=== PATIENT | male | born 1995 | race Caucasian/White ===

== ENCOUNTER 2018-04-10 09:56 | Emergency (ER) | payer SELFPAY ==
[2018-04-10] MEDS ORDERED: DIPH/PERTUSS(ACELL)/TETANUS VAC/PF 0.5 ML SYR (>=10YO) IM ONE (10:14)
--- NOTE | 2018-04-10 10:16 | ER Document Report ---
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 Brief exam of the wound shows no deep structures involved. Patient does not know if his tetanus status is up-to-date. I have greeted and performed a rapid initial assessment of this patient. A comprehensive ED assessment and evaluation of the patient, analysis of test results and completion of the medical decision making process will be conducted by additional ED providers. TRAVEL OUTSIDE OF THE [place] IN LAST 30 DAYS: No - Related Data Allergies/Adverse Reactions: Penicillins Allergy (Verified 04/10/18 09:57) Past Medical History - Social History Chew tobacco use (# tins/day): No Frequency of alcohol use: None Drug Abuse: None Renal/ Medical History: Denies: Hx Peritoneal Dialysis Physical Exam - Vital signs Vitals: Temp Pulse Resp BP Pulse Ox 97.6 F 99 20 133/78 H 97 04/10/18 10:01 04/10/18 10:01 04/10/18 10:01 04/10/18 10:01 04/10/18 10:01 Course - Vital Signs Vital signs: Temp Pulse Resp BP Pulse Ox 97.6 F 99 20 133/78 H 97 04/10/18 10:01 04/10/18 10:01 04/10/18 10:01 04/10/18 10:01 04/10/18 10:01
--- NOTE | 2018-04-10 10:35 | ER Document Report ---
ED General - General Chief Complaint: Laceration Stated Complaint: WRIST INJURY Time Seen by Provider: 04/10/18 10:10 Mode of Arrival: Ambulatory Information source: Patient Notes: 22-year-old male with no reported past medical history presents with a laceration to his left wrist. 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 Unclear whether the patient's tetanus is up-to-date so this was ordered. Patient denies any pain, numbness. He is declining sutures and requesting Dermabond. I did advise him that the area where the laceration is is over the wrist joint and would more likely healed with sutures due to the movement of the wrist. Patient declining. TRAVEL OUTSIDE OF THE [place] IN LAST 30 DAYS: No - HPI Onset: Just prior to arrival Onset/Duration: Sudden Quality of pain: Achy Severity: Mild Associated symptoms: denies: Chills, Fever, Nausea, Vomiting, Shortness of breath Exacerbated by: Movement Relieved by: Remaining still Similar symptoms previously: No Recently seen / treated by doctor: No - Related Data Allergies/Adverse Reactions: Penicillins Allergy (Verified 04/10/18 09:57) Past Medical History - General Information source: Patient, [facility] Records - Social History Smoking Status: Current Every Day Smoker Cigarette use (# per day): Yes - 10 Chew tobacco use (# tins/day): No Smoking Education Provided: Yes - Smoking cessation counseling was provided for 4 minutes at the bedside Frequency of alcohol use: None Drug Abuse: None Lives with: Alone Family History: Reviewed & Not Pertinent Patient has suicidal ideation: No Patient has homicidal ideation: No - Medical History Medical History: Negative Renal/ Medical History: Denies: Hx Peritoneal Dialysis Review of Systems - Review of Systems Notes: REVIEW OF SYSTEMS: CONSTITUTIONAL : Denies fever, chills, or sweats. Denies recent illness. Denies weight loss, recent hospitalizations. EENT: Denies visual changes, eye pain. Denies sore throat, oral lesions, difficulty swallowing. CARDIOVASCULAR: Denies chest pain. Denies palpitations. Denies lower extremity edema. RESPIRATORY: Denies cough. Denies shortness of breath, wheezing. GASTROINTESTINAL: Denies abdominal pain or distention. Denies nausea, vomiting, or diarrhea. Denies blood in vomitus, stools, or per rectum. Denies black, tarry stools. Denies constipation. GENITOURINARY: Denies difficulty urinating, painful urination, frequency, blood in urine, testicular pain or penile discharge. MUSCULOSKELETAL: Denies back or neck pain or stiffness. Denies joint pain or swelling. SKIN: Denies rash. HEMATOLOGIC : Denies easy bruising or bleeding. LYMPHATIC: Denies swollen glands. NEUROLOGICAL: Denies confusion or altered mental status. Denies loss of consciousness. Denies dizziness or lightheadedness. Denies headache. Denies weakness or paralysis. Denies problems difficulty with ambulation, slurred speech. Denies sensory loss, numbness, or tingling. Denies seizures. PSYCHIATRIC: Denies anxiety or stress. Denies depression, suicidal ideation, or Physical Exam - Vital signs Vitals: Temp Pulse Resp BP Pulse Ox 97.6 F 99 20 133/78 H 97 04/10/18 10:01 04/10/18 10:01 04/10/18 10:01 04/10/18 10:01 04/10/18 10:01 - Notes Notes: PHYSICAL EXAMINATION: GENERAL: Well-appearing, well-nourished and in no acute distress. HEAD: Atraumatic, normocephalic. EYES: Pupils equal round and reactive to light, extraocular movements intact, sclera anicteric, conjunctiva are normal. ENT: Nares patent, oropharynx clear without exudates. Moist mucous membranes. NECK: Normal range of motion, supple without lymphadenopathy LUNGS: Breath sounds clear to auscultation bilaterally and equal. No wheezes rales or rhonchi. HEART: Regular rate and rhythm without murmurs ABDOMEN: Soft, nontender, nondistended abdomen. No guarding, no rebound. No masses appreciated. Musculoskeletal: Normal range of motion, no pitting or edema. No cyanosis. 4 cm laceration to the volar aspect of the left wrist proximal to the first MCP. No active bleeding. Symmetrically palpable radial and ulnar pulses. Cap refill less than 2 seconds on all digits. Intact sensation to light touch of the radial, median and ulnar nerves demonstrated by testing in the dorsal webspace of the thumb the distal palmar aspect of the index finger and lateral surface of the fifth finger. Two-point discrimination intact to 5 mm of discrimination in the affected digit. Intact motor function of the radial median and ulnar nerves demonstrated by strength of extension of the isolated distal joint of the index finger, hand filler blender, and spreading of the second through fifth digits. Intact recurrent median nerve as demonstrated by ability to move down fully through opposition, abduction and flexion. No snuffbox tenderness. NEUROLOGICAL: Cranial nerves grossly intact. Normal speech, normal gait. Normal sensory, motor exams PSYCH: Normal mood, normal affect. SKIN: 4 cm laceration to the volar aspect of the left wrist proximal to the first MCP. No active bleeding. Course - Re-evaluation Re-evalutation: 04/10/18 21:37 22-year-old male presents being cut by a ornamental metal erector. Patient unsure of this. Vital signs reviewed and within normal limits upon arrival. Patient does not appear toxic or dehydrated. He is in no acute distress. Previous nursing notes and medical records reviewed. Exam significant for a 4 cm superficial linear laceration on the volar aspect at the base of the thumb. Patient declining sutures, requesting glue or tape. I did discuss with the patient that this is a high tension area and not with excessive movement would be open. Wound edges were approximated with Dermabond and Steri-Strips were placed on top. Patient advised to quit his wrist for 48 hours. Wrist immobilizer provided. Patient discharged home with wound care instructions. Expresses understanding to return if he notices pus from the wound or worsening pain or redness. Or any other symptoms that concern him. - Vital Signs Vital signs: Temp Pulse Resp BP Pulse Ox 98.8 F 95 20 130/71 H 93 04/10/18 11:09 04/10/18 11:09 04/10/18 11:09 04/10/18 11:09 04/10/18 11:09 Procedures - Laceration/Wound Repair Left Wrist Time completed: 12:00 Wound length (cm): 4 Wound's Depth, Shape: Superficial, Linear Laceration pre-procedure: Sterile PPE donned, Betadine prep applied Wound explored: Clean Irrigated w/ Saline (mLs): 1,000 - Copious irrigation with tap water Wound Repaired With: Dermabond Post-procedure NV exam normal: Yes Complications: No Discharge - Discharge Clinical Impression: Laceration of wrist, left Qualifiers: Encounter type: initial encounter Qualified Code(s): S61.512A - Laceration without foreign body of left wrist, initial encounter Condition: Good Disposition: HOME, SELF-CARE Instructions: Laceration Care ([facility]), Tetanus Immunization Given ([facility]) Additional Instructions: You opted to fix your laceration with glue and Steri-Strips. I had a did discuss with you that this was not the best option due to where the laceration is. Please do not get the area wet for 48 hours. Remain in your dressing and splint for 48 hours as well. Please look for signs of infection including pus from the wound, redness around the wound. Please return if any of these occur or you develop a fever or any other concerning symptoms. Forms: Elevated Blood Pressure
[2018-04-10 11:10] VITALS: BP 130/71
== END 2018-04-10 11:12 | disposition home or self-care (01) ==
LOC: ER 09:56
PROC: 0HQEXZZ Repair Left Lower Arm Skin, External Approach (ICD-10-PCS; principal; 2018-04-10)
DX: S61.512A Laceration without foreign body of left wrist, initial encounter (principal); W45.8XXA Other foreign body or object entering through skin, initial encounter; F17.210 Nicotine dependence, cigarettes, uncomplicated
CPT/HCPCS: 12002; G0168; 90471; 90715; 99283; 99406

== ENCOUNTER 2019-04-15 18:44 | Emergency (ER) | payer SELFPAY ==
--- NOTE | 2019-04-15 21:53 | ER Document Report ---
HPI - HPI Time Seen by Provider: 04/15/19 21:49 Notes: Otherwise healthy 23-year-old male presenting with puncture wound to his left foot. Patient reports this occurred 2 days ago. He reports a deepika nail went through his boot and into his foot. He reports his Tdap was up-to-date a couple of months ago. Past Medical History - General Information source: Patient - Social History Smoking Status: Never Smoker Family History: Reviewed & Not Pertinent - Medical History Medical History: Negative Renal/ Medical History: Denies: Hx Peritoneal Dialysis Vertical Provider Document - CONSTITUTIONAL Notes: PHYSICAL EXAMINATION: GENERAL: Well-appearing, well-nourished and in no acute distress. HEAD: Atraumatic, normocephalic. EYES: Pupils equal round extraocular movements intact, conjunctiva are normal. ENT: Nares patent NECK: Normal range of motion LUNGS: No respiratory distress Musculoskeletal: Normal range of motion NEUROLOGICAL: Normal speech, normal gait. PSYCH: Normal mood, normal affect. SKIN: Puncture wound noted to sole of left foot, no surrounding erythema. - INFECTION CONTROL TRAVEL OUTSIDE OF THE [place] IN LAST 30 DAYS: No Course - Re-evaluation Re-evalutation: We will obtain x-ray to eval for retained foreign body. Plan to discharge patient home on antibiotics. - Vital Signs Vital signs: Temp Pulse Resp BP Pulse Ox 98.3 F 79 16 148/83 H 98 04/15/19 19:29 04/15/19 19:29 04/15/19 19:29 04/15/19 19:29 04/15/19 19:29 Discharge - Discharge Clinical Impression: Puncture wound of foot Qualifiers: Encounter type: initial encounter Laterality: right Qualified Code(s): S91.331A - Puncture wound without foreign body, right foot, initial encounter Condition: Stable Disposition: HOME, SELF-CARE Additional Instructions: You are being put on an antibiotic to prevent infection. Please watch the area closely for signs of infection such as increased redness, pain, swelling, drainage from the area. Take antibiotics as prescribed. Ibuprofen or Tylenol for pain. Prescriptions: Ciprofloxacin HCl [Cipro 500 mg Tablet] 500 mg PO BID #10 tablet Forms: Return to Work
--- NOTE | 2019-04-15 23:03 | RADIOLOGY REPORT (SQ) ---
EXAM DESCRIPTION: XR FOOT 3 OR MORE VIEWS COMPLETED DATE/TME: 04/15/2019 21:51 CLINICAL HISTORY: 23 years, Male, eval for retained FB, puncture wound COMPARISON: None. NUMBER OF VIEWS: 3 TECHNIQUE: 3 view left foot LIMITATIONS: None. FINDINGS: Negative for fracture or dislocation. No radiopaque foreign body IMPRESSION: Negative exam copyright 2010 [employer]- All Rights Reserved
[2019-04-16 06:33] VITALS: BP 141/87
== END 2019-04-16 00:15 | disposition home or self-care (01) ==
LOC: ER 18:44
DX: S91.331A Puncture wound without foreign body, right foot, initial encounter (principal); W45.0XXA Nail entering through skin, initial encounter
CPT/HCPCS: 99283